=== PATIENT | male | born 1960 | race Caucasian/White ===

== ENCOUNTER 2020-11-24 20:53 | Emergency (ER) | payer OTHER ==
[~2020-11-24 20:53] MED LIST: ECOTRIN81 MG PO
[2020-11-24] MEDS ORDERED: IBU800 MG PO (22:46)
[2020-11-24] MEDS ORDERED: CYCLOBENZAPRINE10 MG PO (22:46)
[2020-11-24] MEDS ORDERED: ENDOCET 5-3251 EACH PO (22:49)
== END 2020-11-24 23:45 | disposition home or self-care (01) ==
LOC: ER1 20:53
DX: M54.16 Radiculopathy, lumbar region (principal); F17.210 Nicotine dependence, cigarettes, uncomplicated
CPT/HCPCS: 99283

== ENCOUNTER → 2021-07-08 | Outpatient (CLI) | payer OTHER ==
[~2021-07-08] MED LIST changes: +CYCLOBENZAPRINE10 MG PO; +ENDOCET 5-3251 EACH PO; +IBU800 MG PO
== END ==
LOC: CT 10:23
DX: R10.9 Unspecified abdominal pain (principal); G89.29 Other chronic pain; K76.0 Fatty (change of) liver, not elsewhere classified; E27.9 Disorder of adrenal gland, unspecified; K57.30 Diverticulosis of large intestine without perforation or abscess without bleeding; I77.89 Other specified disorders of arteries and arterioles; N40.0 Benign prostatic hyperplasia without lower urinary tract symptoms
CPT/HCPCS: Q9967

== ENCOUNTER → 2021-07-19 | Outpatient (CLI) | payer OTHER | LOC: KOH-I 12:17 | DX: F17.210 Nicotine dependence, cigarettes, uncomplicated (principal) | CPT/HCPCS: 71271 ==